=== PATIENT | male | born 1955 | race Caucasian/White ===

== ENCOUNTER 2024-01-22 11:47 | Emergency (ER) | payer MEDICARE, BC, SELFPAY ==
[2024-01-22 12:27] VITALS: BP 132/76; PULSE 60; RESP 20; TEMP 36.5; O2SAT 99; BMI 39.3
--- NOTE | 2024-01-22 12:31 | XR_ITS ---
Examination: AP chest single view Technique: AP portable sitting chest single view Exam date and time: January 22, 2024 1316 hrs. Comparison September 16, 2023 Indications: Shortness of breath today Findings: Mild heart failure Mild enlargement cardiac contour Prominent vascular congestion with perihilar edema No lobar pneumonia Prominent osteopenia Right arm PICC line tip SVC satisfactory position Impression: Mild CHF
--- NOTE | 2024-01-22 12:31 | EKG_ITS ---
[facility] Test Date: 2024-01-22 Pat Name: LYUBOV CARMONA Department: Room: - Gender: Male Support Services Rep: : 1955 Requested By: Diomedes Rockwell Order Number: [id number] Reading MD: Diomedes Rockwell Measurements Intervals [place] Rate: 64 P: DC: QRS: 11 QRSD: 93 T: 38 QT: 383 QTc: 398 Interpretive Statements SUPRAVENTRICULAR RHYTHM ATYPICAL ECG Compared to ECG 09/26/2023 13:14:35 Supraventricular rhythm now present Atrial fibrillation no longer present T-wave abnormality no longer present /store/S0/[id number]/ecg/[id number].pdf
--- NOTE | 2024-01-22 12:32 | PD.EDADULT ---
ED General RME/HPI General Chief complaint: Shortness of Breath/Dyspnea Stated complaint: SOB Time Seen by Provider: 01/22/24 12:31 Arrival date/time: 01/22/24 11:47 CC: Progressive worsening shortness of breath HPI ongoing for the past 4 to 5 days patient presents to the ER via EMS from [facility] where the physician states the patient is not responding to Lasix medication for diuresis. Patient is nonambulatory for the past 6 weeks secondary to spinal fusion, is bedridden with an indwelling Harrington catheter has been there greater than 1 month. Patient denies fever chills chest pain shortness of breath. Related Data Home Medications ?Medication ?Instructions ?Recorded ?Confirmed valsartan 160 mg tablet 80 mg PO QDAY 09/16/23 12/03/23 carvedilol 25 mg tablet 25 mg PO BID 11/08/23 12/03/23 B-complex with vitamin C 1 tab PO QDAY 12/03/23 12/03/23 acetaminophen 500 mg tablet 500 mg PO Q8H 12/03/23 12/03/23 bisacodyl 10 mg rectal suppository 10 mg CA QDAY PRN Constipation 12/03/23 12/03/23 (Dulcolax (bisacodyl)) capsaicin 0.025 % topical cream 1 applic topical TID 12/03/23 12/03/23 gabapentin 300 mg capsule 300 mg PO BID 12/03/23 12/03/23 heparin (bovine) 5,000 unit/mL 5,000 unit BID 12/03/23 12/03/23 injection solution lansoprazole 30 mg capsule,delayed 30 mg PO QDAY 12/03/23 12/03/23 release (Prevacid) lidocaine 4 % topical patch 1 patch topical QDAY PRN Pain 12/03/23 12/03/23 lidocaine 4 % topical patch 2 patch topical QDAY PRN Pain 12/03/23 12/03/23 melatonin 5 mg tablet 5 mg PO HS 12/03/23 12/03/23 naloxone 0.4 mg/mL injection 0.1 mg subcut Q1M PRN Opioid 12/03/23 12/03/23 solution reversal ondansetron HCl 4 mg/5 mL oral 4 mg PO Q6H PRN Nausea 12/03/23 12/03/23 solution oxycodone 10 mg tablet 10 mg PO Q3H PRN Pain 12/03/23 12/03/23 polyethylene glycol 3350 17 gram 17 g PO QDAY PRN Constipation 12/03/23 12/03/23 oral powder packet (Miralax) sennosides 8.6 mg tablet (senna) 17.2 mg PO QHSPRN PRN Constipation 12/03/23 12/03/23 vancomycin 1.25 gram intravenous 1,250 mg IV Q48H 12/03/23 12/03/23 solution Previous Rx's ?Medication ?Instructions ?Recorded blood-glucose sensor (FreeStyle #1 ea 04/29/23 Shelby 3 Sensor device) lancets #100 ea 04/29/23 pen needle, diabetic 29 gauge x #100 ea 04/29/2303/15 (BD Ultra-Fine Original Pen Needle) insulin regular human 100 unit/mL 5 unit (0.05 mL) subcut TIDACHS 09/29/23 (3 mL) subcutaneous pen PRN Hyperglycemia #15 mL furosemide 40 mg tablet (Lasix) 40 mg PO QDAY #4 tabs 01/22/24 Allergies Allergy/AdvReac Type Severity Reaction Status Date / Time No Known Allergies Allergy Verified 10/29/23 13:21 Review of Systems Review of Systems Narrative Review of Systems: GEN: No fever, no chills, no weight loss EYES: No discharge, no visual changes, no pain HEENT: No ear pain, no congestion, no sore throat PULM:+ shortness of breath, no cough, no congestion CV: No chest pain, no dyspnea on exertion, no palpitations GI: No nausea, no vomiting, no diarrhea, no pain, no constipation : No frequency, no urgency, no dysuria MUSC/SKEL: No joint pain, no back pain SKIN: No rash PSYCH: No hallucinations, no depression HEME/LYMPH: No easy bleeding or bruising tendencies NEURO: No weakness, no headache ED Exam Narrative Physical exam: [General: Morbidly obese not in any acute distress Head normocephalic HEENT: Eyes pupils are PERRLA EOMs are intact mouth pink moist membranes uvula midline. All other subsystems of HEENT are within acceptable limits Neck is supple nontender, no edema no JVD Chest equal chest rise nontender to palpation Respiratory: Poor inspiratory effort secondary to obesity. Clear to auscultation no wheezes crackles or rubs CV: Rate rhythm is regular no murmurs rubs or clicks Abdomen is distended secondary to body habitus soft nontender no masses positive bowel sounds all 4 quadrants Back: Unable to assess initially is secondary to the patient's immobility secondary to spinal fusion. Skin: Intact no petechiae rash induration ulceration or crepitus, chronic s venous stasis type skin with no open lesions to the lower extremities 2+ pitting edema to the knees. Extremities: Moving all extremity against resistance cap refill less than 2 seconds neurosensory intact Neuro: Awake alert oriented x3 Glascow coma 15 no focal deficits] Course Course Course Narrative: Reevaluation this patient at 1700 so the patient has diuresed approximately 600 mL of urine with 80 of Lasix at this time I feel the patient can be diuresed on an outpatient basis and we will add Lasix to the patient's regular regimen for the next 4 days. Patient is agreeable with this plan stating that stating that he feels better. Quality Measures none Orders Category Date Time Status Bedside COVID-19 Antigen Test NOW Care 01/22/24 16:45 Active EKG (ED ONLY) *Do not use* NOW Care 01/22/24 12:31 Completed Harrington [Urinary Catheter] QS Care 01/22/24 14:00 Active Miscellaneous Nursing Order NOW Care 01/22/24 13:46 Active EKG (ED Only) Stat Exams 01/22/24 12:31 Draft XR chest 1V Stat Exams 01/22/24 12:31 Completed B-Type Natriuretic Peptide Stat Lab 01/22/24 12:40 Completed CBC Stat Lab 01/22/24 12:40 Completed Comprehensive Metabolic Panel Stat Lab 01/22/24 12:40 Completed Drug Screen,Urine Stat Lab 01/22/24 14:50 Completed LDH (Lactate Dehydrogenase) Stat Lab 01/22/24 12:40 Completed Magnesium Stat Lab 01/22/24 12:40 Completed Partial Thromboplastin Time Stat Lab 01/22/24 12:40 Completed Prothrombin Time with INR Stat Lab 01/22/24 12:40 Completed Troponin I Stat Lab 01/22/24 12:40 Completed Urinalysis Stat Lab 01/22/24 14:50 Completed Furosemide Inj [Lasix Inj] Med 01/22/24 14:53 Discontinued 80 mg IVP X1 ONE Vital Signs Vital signs: Vital Signs Temperature 97.7 F 01/22/24 12:27 Pulse Rate 60 01/22/24 12:27 Respiratory Rate 20 01/22/24 12:27 Blood Pressure 132/76 H 01/22/24 12:27 Pulse Oximetry (%) 99 01/22/24 12:27 Oxygen Delivery Method Nasal Cannula 01/22/24 12:27 Oxygen Flow Rate 6 01/22/24 12:27 [facility] Patient data External records reviewed:: [facility] previous records and EMS form Clinical information provided by:: patient and EMS Social determinants that could affect healthcare access:: none Patient has the following chronic illnesses:: Spinal fusion diabetes hypertension How is presenting disease/condition affected by chronic disease/condition?: uneffected by Evaluation data The following diagnostics were reviewed and interpreted by me:: lab results, radiology exam(s) and EKG tracing(s) Lab and/or radiology exams considered but not ordered:: EKG performed at 1316 shows a ventricular rate of 64 QRS of 93 QTc of 393 there is baseline artifact indeterminant CA interval. CBC shows WBCs of 5.4 and her significant anemia at 7.5 and 26.0 of the H&H respectively, however prior draws show the patient is remained chronically this anemic. Platelets at 138 CMP shows sodium 141 potassium of 5.2 chloride of 111 CO2 24.9 BUN of 48 creatinine of 2.2 with a glucose of 139. This is a worsening of the previous laboratory results. Troponin is negative BNP is 237. Coags INR 1.2. Chest x-ray is interpreted by me read by radiology shows mild CHF. Urine send shows leukocyte Estrace positive, white blood cell count of greater than 3100, but no bacteria. Interpretation Summary: Review of the medical records 1 shows that the patient has a slowly worsening CKD the patient was previously a ESRD patient and taken off dialysis at [facility] [[email or web address]] diagnosed with a CKD stage III history. Review of the medical record show the last urine culture and sensitivity shows methyl resistant Staph aureus with susceptibility to nitrofurantoin. Medications Medications considered but not ordered:: None Medication administrations:: Medication Administration History Discontinued Medications Furosemide (Furosemide Inj 10 Mg/Ml 4ml Vial) 80 mg IVP X1 ONE Stop: 01/22/24 14:54 Last Admin: 01/22/24 15:16 Dose: 80 mg Documented By: DO None Consultations Consultation(s) initiated? (list below): No Diagnosis Differential Diagnosis ED Complaint MDM: Flash pulmonary edema have congestive heart failure lower extremity edema C Most likely diagnosis given after review of the tests above:: Lower extremity edema CKD Admission Indicated Admission indicated?: not indicated Explain why admission is indicated or not indicated:: Stable for outpatient follow-up Admission Request Was there a request for admission?: No Disposition Plan Disposition Plan: Discharge Discharge Attestation Discharge Attestation: The patient and all family members were given an opportunity to ask questions and understood the discharge instructions. Discharge instructions specifically effects, indications for sooner follow up or return to the emergency department, and the expected course of current diagnosis. Patient condition: Stable Medical Decision Making Differential Diagnosis Differential Diagnosis: Flash pulmonary edema have congestive heart failure lower extremity edema C Lab Data 01/22/24 12:40 01/22/24 12:40 Labs: Lab Results 01/22/24 01/22/24 Range/Units 12:40 14:50 WBC 5.4 (3.8-10.6) Thou/mm3 RBC 2.88 L (4.50-5.90) Miln/mm3 Hgb 7.5 L (13.5-16.0) g/dL Hct 26.0 L (41.0-53.0) % MCV 90 (80-100) fL MCH 26.0 (25.0-35.0) pg MCHC 28.8 L (31.0-37.0) g/dl RDW Std Deviation 60.1 H (35.1-43.9) fL Plt Count 138 L D (140-440) Thou/mm3 Neut % (Auto) 56 (37-80) % Lymph % (Auto) 27 (10-50) % [place] % (Auto) 8 (0-12) % Eos % (Auto) 7 (0-10) % Baso % (Auto) 0 (0-2.5) % Neut # (Auto) 3.0 (1.8-7.7) Thou/mm3 Lymph # (Auto) 1.5 (1.0-4.8) Thou/mm3 [place] # (Auto) 0.4 (0.0-0.8) Thou/mm3 Eos # (Auto) 0.4 (0.0-0.5) Thou/mm3 Baso # (Auto) 0.0 (0.0-0.2) Thou/mm3 Immature Gran # (Auto) 0.09 H (0.00-0.00) Thou/mm3 Absolute Nucleated RBC 0.02 H (0.00-0.00) Thou/mm3 Immature Gran % 2 H (0-0) % Nucleated RBC % 0 (0) /100 WBC PT 13.1 H (9.0-12.2) Seconds INR 1.2 (0.9-1.3) APTT 30.8 (22.0-36.0) Seconds Sodium 141 (136-145) mMol/L Potassium 5.2 H (3.4-5.1) mMol/L Chloride 111 H (98-107) mMol/L Carbon Dioxide 24.9 (20.0-31.0) mMol/L Anion Gap 5 L (7-16) BUN 48 H (9-23) mg/dL Creatinine 2.2 H (0.6-1.3) mg/dL Estim Creat Clear Calc 46.3 L (>60) mL/min eGFR 32 L (60 - ) See Note BUN/Creatinine Ratio 22 H (12-20) Ratio Glucose 139 H (74-106) mg/dL Calculated Osmolality 295 (275-295) Calcium 8.8 (8.3-10.6) mg/dL Corrected Calcium 9.4 (8.5-10.1) mg/dL Magnesium 2.1 (1.6-2.6) mg/dL Total Bilirubin 0.2 L (0.3-1.2) mg/dL AST < 8 (0-34) U/L ALT < 7 L (10-49) U/L Alkaline Phosphatase 125 H (46-116) U/L Lactate Dehydrogenase 147 (120-246) U/L Troponin I < 0.020 (0.0-0.045) ng/mL B-Natriuretic Peptide 237 H (0-100) pg/mL Total Protein 6.9 (5.7-8.2) gm/dL Albumin 3.3 L (3.4-4.8) gm/dL Globulin 3.6 H (2.3-3.5) gm/dL Albumin/Globulin Ratio 0.9 L (1.2-2.2) Ur Collection Type Clean Catch Urine Color Yellow (Lt Yel-Yel) Urine Clarity Turbid A (Clear/Hazy) Urine pH 6.5 (5.0-7.0) Ur Specific [place] 1.016 (1.001-1.035) Urine Protein 3+ A (Neg - Trace) Urine Glucose (UA) Trace (Negative) Urine Ketones Negative (Negative) Urine Blood 3+ A (Negative) Urine Nitrite Negative (Negative) Urine Bilirubin Negative (Negative) Urine Urobilinogen (Auto) Negative (0.0-1.0) mg/dL Ur Leukocyte Esterase Positive (Negative) Urine RBC 344 H (0-3) /hpf Urine WBC 2168 H (0-5) /hpf Ur Squamous Epith Cells 0 (0-5) /hpf Urine Bacteria None (None) Urine Opiates Screen Negative (Negative) Urine Fentanyl Screen Negative (Negative) Ur Barbiturates Screen Negative (Negative) U Amphetamin/Meth Scrn Negative (Negative) U Benzodiazepines Scrn Negative (Negative) U Cocaine Metab Screen Negative (Negative) U Marijuana (THC) Screen Negative (Negative) Discharge Plan Plan Patient Disposition: HOME (Self Care) Patient condition on transfer: Stable Prescriptions/Referrals Prescriptions/Med Rec: New furosemide [Lasix] 40 mg tablet 40 mg PO QDAY Qty: 4 0RF No Action valsartan 160 mg tablet 80 mg PO QDAY insulin regular human 100 unit/mL (3 mL) insulin pen 5 unit subcut TIDACHS PRN (Reason: Hyperglycemia) Qty: 15 0RF Rx Instructions: patient only takes if sugar is on the high side, not on regular basis carvedilol 25 mg tablet 25 mg PO BID Rx Instructions: must administer with a meal/food (DME) pen needle, diabetic [BD Ultra-Fine Orig Pen Needle] 29 gauge x 1/2 needle See Rx Instructions .Route Qty: 100 0RF Rx Instructions: As directed (DME) lancets Misc See Rx Instructions .Route Qty: 100 0RF Rx Instructions: As directed (DME) FreeStyle Shelby 3 Sensor Device See Rx Instructions .Route Qty: 1 0RF Rx Instructions: As directed sennosides [senna] 8.6 mg Tablet 17.2 mg PO QHSPRN PRN (Reason: Constipation) lidocaine 4 % Adhesive Patch,Medicated 1 patch TOPICAL QDAY PRN (Reason: Pain) lidocaine 4 % Adhesive Patch,Medicated 2 patch TOPICAL QDAY PRN (Reason: Pain) polyethylene glycol 3350 [Miralax] 17 gram Powder In Packet 17 g PO QDAY PRN (Reason: Constipation) naloxone 0.4 mg/mL Solution 0.1 mg SUBCUT Q1M PRN (Reason: Opioid reversal ) Rx Instructions: NTExceed 10 mg total dose/episode heparin (bovine) 5,000 unit/mL Solution 5,000 unit BID acetaminophen 500 mg Tablet 500 mg PO Q8H ondansetron HCl 4 mg/5 mL Solution 4 mg PO Q6H PRN (Reason: Nausea) bisacodyl [Dulcolax (bisacodyl)] 10 mg Suppository 10 mg CA QDAY PRN (Reason: Constipation) lansoprazole [Prevacid] 30 mg Capsule,Delayed Release(Dr/Ec) 30 mg PO QDAY gabapentin 300 mg Capsule 300 mg PO BID capsaicin 0.025 % Cream 1 applic TOPICAL TID B-complex with vitamin C Tablet 1 tab PO QDAY oxycodone 10 mg Tablet 10 mg PO Q3H PRN (Reason: Pain) melatonin 5 mg Tablet 5 mg PO HS vancomycin 1.25 gram Recon Soln 1,250 mg IV Q48H Referrals: Aamnda Dinh MD [Primary Care Provider] - In 1 week Problem List Clinical Impression: Dependent edema, CKD (chronic kidney disease), stage III Patient/Caregiver Discharge Instructions Education Materials: Taking a Diuretic, ED Leg Swelling in Both Legs Additional Instructions: Take the medications as prescribed for 4 days only have your doctor closely monitor your renal function. If there is a worsening of symptoms or continued reaccumulation of the fluid in the lower extremities or experiencing acute onset of shortness of breath return the emergency room immediately for further evaluation. Print Language: Dutch Stand Alone Forms: Leanne Award Info., Patient Portal Info Letter PA/PORTFOLIO ASSISTANT Supervising Physician PA/PORTFOLIO ASSISTANT Supervising Physician: Nehemias Rosado ENP
[2024-01-22 12:48] VITALS: PULSE 81; RESP 18; O2SAT 88
[2024-01-22 13:04] LABS: Basophils % (Auto) 0 % (0-2.5); Eosinophils # (Auto) 0.4 Thou/mm3 (0.0-0.5); Eosinophils % (Auto) 7 % (0-10); Immature Granulocytes % (Auto) 2 % (0-0); Immature Granulocytes Auto 0.09 Thou/mm3 (0.00-0.00); Lymphocytes # (Auto) 1.5 Thou/mm3 (1.0-4.8); Lymphocytes % (Auto) 27 % (10-50); Mean Corpuscular HGB Conc 28.8 g/dl (31.0-37.0); Mean Corpuscular Volume 90 fL (80-100); Monocytes # (Auto) 0.4 Thou/mm3 (0.0-0.8); Monocytes % (Auto) 8 % (0-12); Neutrophils % (Auto) 56 % (37-80); Nucleated Red Blood Cell # 0.02 Thou/mm3 (0.00-0.00); Nucleated Red Blood Cell % 0 /100 WBC (0); Platelet Count 138 Thou/mm3 (140-440); RDW Standard Deviation 60.1 fL (35.1-43.9); Red Blood Count 2.88 Miln/mm3 (4.50-5.90); White Blood Count 5.4 Thou/mm3 (3.8-10.6)
[2024-01-22 13:07] LABS: Hemoglobin 7.5 g/dL (13.5-16.0)
[2024-01-22 13:31] LABS: B-Type Natriuretic Peptide 237 pg/mL (0-100); INR 1.2 (0.9-1.3); Partial Thromboplastin Time 30.8 Seconds (22.0-36.0); Prothrombin Time 13.1 Seconds (9.0-12.2)
[2024-01-22 13:58] LABS: Alanine Aminotransferase < 7 U/L (10-49); Albumin, Serum 3.3 gm/dL (3.4-4.8); Albumin/Globulin Ratio 0.9 (1.2-2.2); Alkaline Phosphatase 125 U/L (46-116); Anion Gap 5 (7-16); Aspartate Amino Transferase < 8 U/L (0-34); BUN/Creatinine Ratio 22 Ratio (12-20); Bilirubin,Total 0.2 mg/dL (0.3-1.2); Blood Urea Nitrogen 48 mg/dL (9-23); Calcium 8.8 mg/dL (8.3-10.6); Calcium (Corrected) 9.4 mg/dL (8.5-10.1); Carbon Dioxide 24.9 mMol/L (20.0-31.0); Chloride 111 mMol/L (98-107); Creatinine (Component) 2.2 mg/dL (0.6-1.3); Estimated Creatinine Clearance 46.3 mL/min (>60); Globulin 3.6 gm/dL (2.3-3.5); Glucose 139 mg/dL (74-106); LDH (Lactate Dehydrogenase) 147 U/L (120-246); Magnesium 2.1 mg/dL (1.6-2.6); Osmolality,Calculated 295 (275-295); Potassium 5.2 mMol/L (3.4-5.1); Sodium 141 mMol/L (136-145); Total Protein 6.9 gm/dL (5.7-8.2); Troponin I < 0.020 ng/mL (0.0-0.045); eGFR 32 See Note
[2024-01-22 15:10] LABS: Collection Type, Urine Clean Catch; Squamous Epithelial Cell,Urine 0 /hpf (0-5)
[2024-01-22 15:16] VITALS: BP 167/87; PULSE 69; RESP 20; O2SAT 96
[2024-01-22] MEDS: FUROSEMIDE INJ 10 MG/ML 4ML VIAL 80 MG IVP (15:16)
[2024-01-22 15:46] LABS: Amphetamine/Methamp Scrn,U Negative (Negative); Barbiturate Screen,Urine Negative (Negative); Benzodiazepines Screen,Urine Negative (Negative); Benzoylecgonine Screen, Ur Negative (Negative); Fentanyl Screen,Urine Negative (Negative); Opiate Screen,Urine Negative (Negative); THC Screen,Urine Negative (Negative)
--- NOTE | 2024-01-22 15:50 | PC.NURSE ---
250ml urine output noted at this time. reported to rosamaria del castillo
[2024-01-22 15:53] LABS: Bilirubin,Urine Negative (Negative); Blood,Urine 3+ (Negative); Color,Urine Yellow (Lt Yel-Yel); Glucose, Urine Trace (Negative); Ketones,Urine Negative (Negative); Leukocyte Esterase,Urine Positive (Negative); Nitrite,Urine Negative (Negative); PH,Urine 6.5 (5.0-7.0); Protein,Urine 3+ (Neg - Trace); RBC,Urine 344 /hpf (0-3); Specific Gravity,Urine 1.016 (1.001-1.035); Urobilinogen,Urine Negative mg/dL (0.0-1.0); WBC,Urine 2168 /hpf (0-5)
[2024-01-22 15:54] LABS: Clarity,Urine Turbid (Clear/Hazy)
[2024-01-22 18:00] VITALS: BP 175/78; PULSE 68; RESP 20; TEMP 36.9; O2SAT 97
--- NOTE | 2024-01-22 18:34 | PC.CC ---
[facility] [facility] CC engaged to arrange transport for pt back to [facility]. Upon review pt does not have health coverage to cover transport. Pt will require gurney transport for being bound due to spinal fusion. 1800-[facility] CC contacted [facility] for gurney transport. Per staff gurney transport not available. DENNIS signed for gurney transport. PCS, face sheet and DENNIS uploaded to [employer]. 183-Call to dispatch. Transport ETA set for 1944. Staff aware.
--- NOTE | 2024-01-22 18:43 | PC.NURSE ---
REPORT GIVEN TO MIGUELANGEL AT [facility]
== END 2024-01-22 19:10 | disposition home or self-care (01) ==
PROVIDERS: Registered Nurse General Practice; Emergency Provider Emergency Medicine; PCP Family Medicine
DX: I12.9 Hypertensive chronic kidney disease with stage 1 through stage 4 chronic kidney disease, or unspecified chronic kidney disease (principal); E11.22 Type 2 diabetes mellitus with diabetic chronic kidney disease; N18.30 Chronic kidney disease, stage 3 unspecified; I49.8 Other specified cardiac arrhythmias
CPT/HCPCS: 51702; 36415; 71045; 80053; 80307; 81001; 83615; 83735; 83880; 84484; 85025; 85610; 85730; 87811; 93005; 96374; 99284; J1940

== ENCOUNTER 2024-03-29 16:42 | Emergency (ER) | payer MEDICARE, BC, SELFPAY ==
[2024-03-29 16:48] VITALS: PULSE 69; RESP 18; O2SAT 97; BMI 36.2
[2024-03-29 16:53] VITALS: BP 163/103; PULSE 74; RESP 18; TEMP 37.1; O2SAT 98
--- NOTE | 2024-03-29 16:56 | PC.NURSE ---
PT ARRIVES VIA EMS FROM HOME, HAS INDWELLING CATHETER THAT WAS LEAKING URINE AROUND CATHETER AND HAVING SEVERE PAIN IN BLADDER REGION. PT CALLED HOME HEALTH NURSE WHO CAME PULLED OLD CATHETER AND ATTEMPTED TO PLACE A NEW ONE BUT WAS UNSUCCESSFUL IT WAS CAUSING THE PT TOO MUCH PAIN. PT DOES NOT HAVE BUSH IN UPON ARRIVAL TO ED. PT IS HYPERTENSIVE ON TELE, CALL [facility] [place].
--- NOTE | 2024-03-29 17:05 | EDNOTE_ITS ---
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 Patient was sent to us for further evaluation. Now patient is complaining of suprapubic distention and discomfort. Denies any other complaints. Related Data Home Medications ?Medication ?Instructions ?Recorded ?Confirmed valsartan 160 mg tablet 80 mg PO QDAY 09/16/23 12/03/23 carvedilol 25 mg tablet 25 mg PO BID 11/08/23 12/03/23 B-complex with vitamin C 1 tab PO QDAY 12/03/23 12/03/23 acetaminophen 500 mg tablet 500 mg PO Q8H 12/03/23 12/03/23 bisacodyl 10 mg rectal suppository [address] QDAY PRN Constipation 12/03/23 12/03/23 (Dulcolax (bisacodyl)) capsaicin 0.025 % topical cream 1 applic topical TID 12/03/23 12/03/23 gabapentin 300 mg capsule 300 mg PO BID 12/03/23 12/03/23 heparin (bovine) 5,000 unit/mL 5,000 unit BID 12/03/23 12/03/23 injection solution lansoprazole 30 mg capsule,delayed 30 mg PO QDAY 12/03/23 12/03/23 release (Prevacid) lidocaine 4 % topical patch 1 patch topical QDAY PRN Pain 12/03/23 12/03/23 lidocaine 4 % topical patch 2 patch topical QDAY PRN Pain 12/03/23 12/03/23 melatonin 5 mg tablet 5 mg PO HS 12/03/23 12/03/23 naloxone 0.4 mg/mL injection 0.1 mg subcut Q1M PRN Opioid 12/03/23 12/03/23 solution reversal ondansetron HCl 4 mg/5 mL oral 4 mg PO Q6H PRN Nausea 12/03/23 12/03/23 solution oxycodone 10 mg tablet 10 mg PO Q3H PRN Pain 12/03/23 12/03/23 polyethylene glycol 3350 17 gram 17 g PO QDAY PRN Constipation 12/03/23 12/03/23 oral powder packet (Miralax) sennosides 8.6 mg tablet (senna) 17.2 mg PO QHSPRN PRN Constipation 12/03/23 12/03/23 vancomycin 1.25 gram intravenous 1,250 mg IV Q48H 12/03/23 12/03/23 solution Previous Rx's ?Medication ?Instructions ?Recorded blood-glucose sensor (FreeStyle #1 ea 04/29/23 Shelby 3 Sensor device) lancets #100 ea 04/29/23 pen needle, diabetic 29 gauge x #100 ea 04/29/2303/15 (BD Ultra-Fine Original Pen Needle) insulin regular human 100 unit/mL 5 unit (0.05 mL) subcut TIDACHS 09/29/23 (3 mL) subcutaneous pen PRN Hyperglycemia #15 mL furosemide 40 mg tablet (Lasix) 40 mg PO QAM #4 tabs 01/22/24 furosemide 40 mg tablet (Lasix) 40 mg PO QDAY #4 tabs 01/22/24 cefuroxime axetil 500 mg tablet 500 mg PO BID #14 tabs 03/29/24 Allergies Allergy/AdvReac Type Severity Reaction Status Date / Time gabapentin Allergy Confusion Verified 03/29/24 16:54 Review of Systems Review of Systems Narrative Review of Systems: Review of system reviewed and within normal limits except mentioned in HPI ED Exam Narrative Physical exam: VITAL SIGNS: Reviewed. GENERAL APPEARANCE: Alert and interactive, follows commands, no acute distress, HEAD AND FACE: Non-traumatic. ENT: PERRL, pink conjunctivitis, eyelid no trauma, Mucous membrane moist. NECK: Supple, nontender, no nuchal rigidity. CHEST: No tenderness, no crepitus, no paradoxical movement, no retractions. LUNGS: Clear, well ventilated, symmetric, no rales, no wheezing, no ronchi, no stridor, good breath sounds bilaterally. HEART: Regular rate, regular rhythm, no murmur, no gallops. ABDOMEN: Soft, positive bowel sounds, nondistended, no guarding, suprapubic distention and discomfort, no rebound, no masses, RECTAL: Deferred. GENITAL: Deferred. NEUROLOGICAL: Gross motor function intact sensory function intact, Appropriate for age. MUSCULOSKELETAL: low back nontender, full range of motion. EXTREMITIES: Nontender, full range of motion. SKIN: Color pink, dry, no rash, no lacerations, no abrasions, no contusions. LYMPHATICS: Deferred. Course Quality Measures none Orders Category Date Time Status Bush [Urinary Catheter] QS Care 03/29/24 17:03 Active CBC [CBC] Stat Lab 03/29/24 17:12 Completed CMP [Comprehensive Metabolic Panel] Stat Lab 03/29/24 17:12 Completed UA, C/S IF [Urinalysis, C/S if Indicated] Stat Lab 03/29/24 17:23 Completed Urine Culture Stat Lab 03/29/24 17:23 Received cefTRIAXone [Rocephin] 1,000 mg Med 03/29/24 18:08 Discontinued Lidocaine 1% 20 ml [Xylocaine 1% 20 ML] 2.1 ml IM X1 Vital Signs Vital signs: Vital Signs Temperature 98.7 F 03/29/24 16:53 Pulse Rate 74 03/29/24 16:53 Respiratory Rate 18 03/29/24 16:53 Blood Pressure 163/103 H 03/29/24 16:53 Pulse Oximetry (%) 98 03/29/24 16:53 Oxygen Delivery Method Room Air 03/29/24 16:53 Urogenital - Male MDM Narrative MDM Narrative:: 68-year-old male patient with significant history of BPH, chronic Bush catheter, 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 Patient was sent to us for further evaluation. Now patient is complaining of suprapubic distention and discomfort. Denies any other complaints. Brenda 18 Bush catheter was inserted without any difficulty. Urinalysis significant for UTI. Patient's laboratory workup significant for chronic kidney disease. Currently the creatinine was on the baseline. Results discussed with the patient. Was advised to drink a lot of fluids and follow-up closely with PCP. Patient received ceftriaxone IM Patient data External records reviewed:: None Clinical information provided by:: patient Social determinants that could affect healthcare access:: none Patient has the following chronic illnesses:: Diabetes mellitus hypertension chronic Bush catheter How is presenting disease/condition affected by chronic disease/condition?: exacerbated by Evaluation data The following diagnostics were reviewed and interpreted by me:: lab results Lab and/or radiology exams considered but not ordered:: None Interpretation Summary: Urinalysis significant for UTI otherwise unremarkable except for chronic kidney disease patient's creatinine today was noted to be 2.1 BUN of 35. Medications / Prescriptions Medications or Prescriptions considered but not ordered:: None Medication administrations:: Medication Administration History Discontinued Medications Ceftriaxone Sodium 1,000 mg/ (Lidocaine HCl 2.1 ml) 0 mg IM X1 ONE Stop: 03/29/24 18:09 Last Admin: 03/29/24 18:23 Dose: 1,000 mg Documented By: TM Ceftriaxone IM Consultations Consultation(s) initiated? (list below): No Diagnosis Urogenital Male Differential Diagnosis: urinary tract infection, acute retention of urine and other (Chronic Bush catheter) Most likely diagnosis given after review of the tests above:: Acute on chronic urinary retention, UTI Admission Indicated Admission indicated?: not indicated Explain why admission is indicated or not indicated:: Stable Admission Request Was there a request for admission?: No Disposition Plan Disposition Plan: Discharge Discharge Attestation Discharge Attestation: The patient and all family members were given an opportunity to ask questions and understood the discharge instructions. Discharge instructions specifically effects, indications for sooner follow up or return to the emergency department, and the expected course of current diagnosis. Patient condition: Stable Discharge Plan Plan Patient Disposition: HOME (Self Care) Disposition Comment: Stable Prescriptions/Referrals Prescriptions/Med Rec: New cefuroxime axetil 500 mg tablet 500 mg PO BID Qty: 14 0RF No Action valsartan 160 mg tablet 80 mg PO QDAY insulin regular human 100 unit/mL (3 mL) insulin pen 5 unit subcut TIDACHS PRN (Reason: Hyperglycemia) Qty: 15 0RF Rx Instructions: patient only takes if sugar is on the high side, not on regular basis carvedilol 25 mg tablet 25 mg PO BID Rx Instructions: must administer with a meal/food (DME) pen needle, diabetic [BD Ultra-Fine Orig Pen Needle] 29 gauge x 1/2 needle See Rx Instructions .Route Qty: 100 0RF Rx Instructions: As directed (DME) lancets Misc See Rx Instructions .Route Qty: 100 0RF Rx Instructions: As directed (DME) FreeStyle Shelby 3 Sensor Device See Rx Instructions .Route Qty: 1 0RF Rx Instructions: As directed sennosides [senna] 8.6 mg Tablet 17.2 mg PO QHSPRN PRN (Reason: Constipation) lidocaine 4 % Adhesive Patch,Medicated 1 patch TOPICAL QDAY PRN (Reason: Pain) lidocaine 4 % Adhesive Patch,Medicated 2 patch TOPICAL QDAY PRN (Reason: Pain) polyethylene glycol 3350 [Miralax] 17 gram Powder In Packet 17 g PO QDAY PRN (Reason: Constipation) naloxone 0.4 mg/mL Solution 0.1 mg SUBCUT Q1M PRN (Reason: Opioid reversal ) Rx Instructions: NTExceed 10 mg total dose/episode heparin (bovine) 5,000 unit/mL Solution 5,000 unit BID acetaminophen 500 mg Tablet 500 mg PO Q8H ondansetron HCl 4 mg/5 mL Solution 4 mg PO Q6H PRN (Reason: Nausea) bisacodyl [Dulcolax (bisacodyl)] 10 mg Suppository [address] QDAY PRN (Reason: Constipation) lansoprazole [Prevacid] 30 mg Capsule,Delayed Release(Dr/Ec) 30 mg PO QDAY gabapentin 300 mg Capsule 300 mg PO BID capsaicin 0.025 % Cream 1 applic TOPICAL TID B-complex with vitamin C Tablet 1 tab PO QDAY oxycodone 10 mg Tablet 10 mg PO Q3H PRN (Reason: Pain) melatonin 5 mg Tablet 5 mg PO HS vancomycin 1.25 gram Recon Soln 1,250 mg IV Q48H furosemide [Lasix] 40 mg tablet 40 mg PO QDAY Qty: 4 0RF furosemide [Lasix] 40 mg tablet 40 mg PO QAM Qty: 4 0RF Referrals: Amanda Dinh MD [Primary Care Provider] - In 1 week Problem List Clinical Impression: UTI (urinary tract infection), Acute on chronic urinary retention Patient/Caregiver Discharge Instructions Discharge Activity: activity as tolerated Education Materials: ED Bush Catheter, Care Additional Instructions: Thank you for the opportunity for serving you today. You are stable for discharged . You are advised to: Follow-up with your PCP in 1 to 2 days Return to ED for worsening of symptoms Increase oral fluids Take medication as prescribed Print Language: Bengali Stand Alone Forms: Leanne Award Info., Patient Portal Info Letter PA/LATHA Supervising Physician LILIAN/LATHA Supervising Physician: MD Clara
[2024-03-29 17:18] LABS: Basophils % (Auto) 0 % (0-2.5); Eosinophils # (Auto) 0.6 Thou/mm3 (0.0-0.5); Eosinophils % (Auto) 6 % (0-10); Hematocrit 30.4 % (41.0-53.0); Hemoglobin 9.7 g/dL (13.5-16.0); Immature Granulocytes % (Auto) 0 % (0-0); Immature Granulocytes Auto 0.04 Thou/mm3 (0.00-0.00); Lymphocytes # (Auto) 1.7 Thou/mm3 (1.0-4.8); Lymphocytes % (Auto) 19 % (10-50); Mean Corpuscular HGB Conc 31.9 g/dl (31.0-37.0); Mean Corpuscular Hemoglobin 25.5 pg (25.0-35.0); Mean Corpuscular Volume 80 fL (80-100); Monocytes # (Auto) 0.7 Thou/mm3 (0.0-0.8); Monocytes % (Auto) 8 % (0-12); Neutrophils % (Auto) 67 % (37-80); Nucleated Red Blood Cell % 0 /100 WBC (0); Platelet Count 153 Thou/mm3 (140-440); RDW Standard Deviation 46.5 fL (35.1-43.9); Red Blood Count 3.81 Miln/mm3 (4.50-5.90)
[2024-03-29 17:39] LABS: Collection Type, Urine Catheter; Squamous Epithelial Cell,Urine 0 /hpf (0-5)
[2024-03-29 17:42] LABS: Alanine Aminotransferase 11 U/L (10-49); Albumin, Serum 3.4 gm/dL (3.4-4.8); Alkaline Phosphatase 124 U/L (46-116); Anion Gap 5 (7-16); Aspartate Amino Transferase 12 U/L (0-34); BUN/Creatinine Ratio 17 Ratio (12-20); Bilirubin,Total 0.2 mg/dL (0.3-1.2); Blood Urea Nitrogen 35 mg/dL (9-23); Calcium 8.8 mg/dL (8.3-10.6); Calcium (Corrected) 9.3 mg/dL (8.5-10.1); Carbon Dioxide 27.1 mMol/L (20.0-31.0); Chloride 110 mMol/L (98-107); Creatinine (Component) 2.1 mg/dL (0.6-1.3); Estimated Creatinine Clearance 46.5 mL/min (>60); Globulin 3.3 gm/dL (2.3-3.5); Glucose 207 mg/dL (74-106); Osmolality,Calculated 297 (275-295); Sodium 142 mMol/L (136-145); Total Protein 6.7 gm/dL (5.7-8.2); eGFR 34 See Note
[2024-03-29 17:46] LABS: Bacteria,Urine Rare; Bilirubin,Urine Negative (Negative); Blood,Urine 3+ (Negative); Color,Urine Yellow (Lt Yel-Yel); Glucose, Urine 2+ (Negative); Ketones,Urine Negative (Negative); Leukocyte Esterase,Urine Positive (Negative); Nitrite,Urine Negative (Negative); PH,Urine 6.5 (5.0-7.0); Protein,Urine 3+ (Neg - Trace); RBC,Urine 334 /hpf (0-3); Specific Gravity,Urine 1.014 (1.001-1.035); Urobilinogen,Urine Negative mg/dL (0.0-1.0); WBC,Urine 2149 /hpf (0-5)
[2024-03-29 17:49] LABS: Clarity,Urine Cloudy (Clear/Hazy); Culture Indicated,Urine Yes
[2024-03-29 18:12] VITALS: BP 165/85; PULSE 67; RESP 19; TEMP 36.8; O2SAT 95
[2024-03-29] MEDS: cefTRIAXone 1,000 MG, LIDOCAINE 1% 20 ML 2.1 ML IM (18:23)
[2024-03-29 20:51] VITALS: PULSE 63; RESP 20; O2SAT 95
--- NOTE | 2024-03-29 20:52 | PC.NURSE ---
Report given to EMS for discharge home.
== END 2024-03-29 20:53 | disposition home or self-care (01) ==
PROVIDERS: Nurse Practitioner Family; Emergency Provider Emergency Medicine; PCP Family Medicine
DX: N40.1 Benign prostatic hyperplasia with lower urinary tract symptoms (principal); R33.8 Other retention of urine; N39.0 Urinary tract infection, site not specified
CPT/HCPCS: 51702; 36415; 80053; 81001; 85025; 87086; 96372; 99283; J0696; J3490

== ENCOUNTER → 2024-04-24 | Outpatient (CLI) | payer MEDICARE, BC, SELFPAY ==
[2024-04-24 14:11] LABS: Collection Type, Urine Clean Catch; Squamous Epithelial Cell,Urine 0 /hpf (0-5)
[2024-04-24 14:45] LABS: Bilirubin,Urine Negative (Negative); Blood,Urine 2+ (Negative); Budding Yeast,Urine Present; Clarity,Urine Turbid (Clear/Hazy); Color,Urine Yellow (Lt Yel-Yel); Glucose, Urine Trace (Negative); Ketones,Urine Negative (Negative); Leukocyte Esterase,Urine Positive (Negative); Nitrite,Urine Negative (Negative); PH,Urine 6.5 (5.0-7.0); Protein,Urine 2+ (Neg - Trace); RBC,Urine 160 /hpf (0-3); Specific Gravity,Urine 1.011 (1.001-1.035); Urobilinogen,Urine Negative mg/dL (0.0-1.0); WBC,Urine 391 /hpf (0-5)
[2024-04-24 15:22] LABS: Culture Indicated,Urine Yes
== END | disposition home or self-care (01) ==
PROVIDERS: PCP Family Medicine; Referring Provider Family Medicine; Visit Provider Family Medicine
DX: N39.0 Urinary tract infection, site not specified (principal)
CPT/HCPCS: 81001; 87086; 87106

== ENCOUNTER → 2024-05-18 | Outpatient (CLI) | payer MEDICARE, BC, SELFPAY ==
[2024-05-18 13:56] LABS: Collection Type, Urine Clean Catch; Squamous Epithelial Cell,Urine 0 /hpf (0-5)
[2024-05-18 14:37] LABS: Bacteria,Urine Rare; Bilirubin,Urine Negative (Negative); Blood,Urine 1+ (Negative); Budding Yeast,Urine Present; Clarity,Urine Turbid (Clear/Hazy); Color,Urine Lt-Yellow (Lt Yel-Yel); Glucose, Urine 3+ (Negative); Ketones,Urine Negative (Negative); Leukocyte Esterase,Urine Positive (Negative); Nitrite,Urine Negative (Negative); PH,Urine 6.5 (5.0-7.0); Protein,Urine 2+ (Neg - Trace); RBC,Urine 14 /hpf (0-3); Specific Gravity,Urine 1.009 (1.001-1.035); Urobilinogen,Urine Negative mg/dL (0.0-1.0); WBC,Urine 124 /hpf (0-5)
[2024-05-18 14:44] LABS: Culture Indicated,Urine Yes
== END | disposition home or self-care (01) ==
LOC: SLDO 13:47
PROVIDERS: PCP Family Medicine; Referring Provider Family Medicine; Visit Provider Family Medicine
DX: N39.0 Urinary tract infection, site not specified (principal)
CPT/HCPCS: 81001; 87086; 87106

== ENCOUNTER → 2024-07-13 | Outpatient (CLI) | payer MEDICARE, BC, SELFPAY ==
[2024-07-13 10:56] LABS: Collection Type, Urine Catheter; Squamous Epithelial Cell,Urine 0 /hpf (0-5)
[2024-07-13 11:41] LABS: Basophils % (Auto) 1 % (0-2.5); Eosinophils # (Auto) 0.4 Thou/mm3 (0.0-0.5); Eosinophils % (Auto) 6 % (0-10); Hematocrit 31.9 % (41.0-53.0); Hemoglobin 11.2 g/dL (13.5-16.0); Immature Granulocytes % (Auto) 1 % (0-0); Immature Granulocytes Auto 0.08 Thou/mm3 (0.00-0.00); Lymphocytes # (Auto) 1.5 Thou/mm3 (1.0-4.8); Lymphocytes % (Auto) 21 % (10-50); Mean Corpuscular HGB Conc 35.1 g/dl (31.0-37.0); Mean Corpuscular Hemoglobin 29.2 pg (25.0-35.0); Mean Corpuscular Volume 83 fL (80-100); Monocytes # (Auto) 0.7 Thou/mm3 (0.0-0.8); Monocytes % (Auto) 10 % (0-12); Neutrophils # (Auto) 4.6 Thou/mm3 (1.8-7.7); Neutrophils % (Auto) 62 % (37-80); Nucleated Red Blood Cell % 0 /100 WBC (0); Platelet Count 182 Thou/mm3 (140-440); RDW Standard Deviation 42.5 fL (35.1-43.9); Red Blood Count 3.83 Miln/mm3 (4.50-5.90); White Blood Count 7.4 Thou/mm3 (3.8-10.6)
[2024-07-13 11:50] LABS: Bacteria,Urine 1+; Bilirubin,Urine Negative (Negative); Blood,Urine 3+ (Negative); Glucose, Urine 4+ (Negative); Ketones,Urine Negative (Negative); Leukocyte Esterase,Urine Positive (Negative); Nitrite,Urine Negative (Negative); PH,Urine 6.5 (5.0-7.0); Protein,Urine 2+ (Neg - Trace); RBC,Urine 349 /hpf (0-3); Specific Gravity,Urine 1.016 (1.001-1.035); Urobilinogen,Urine Negative mg/dL (0.0-1.0); WBC,Urine 2261 /hpf (0-5)
[2024-07-13 11:52] LABS: Albumin, Serum 3.3 gm/dL (3.4-4.8); Anion Gap 8 (7-16); BUN/Creatinine Ratio 25 Ratio (12-20); Blood Urea Nitrogen 76 mg/dL (9-23); Calcium 8.3 mg/dL (8.3-10.6); Calcium (Corrected) 8.9 mg/dL (8.5-10.1); Carbon Dioxide 28.2 mMol/L (20.0-31.0); Chloride 98 mMol/L (98-107); Clarity,Urine Cloudy (Clear/Hazy); Color,Urine Amber (Lt Yel-Yel); Creatinine (Component) 3.1 mg/dL (0.6-1.3); Phosphorous 4.4 mg/dL (2.4-5.1); Potassium 4.7 mMol/L (3.4-5.1); Sodium 134 mMol/L (136-145); eGFR 21 See Note
[2024-07-13 11:58] LABS: Osmolality,Calculated 322 (275-295)
[2024-07-13 12:02] LABS: Glucose 672 mg/dL (74-106)
== END | disposition home or self-care (01) ==
LOC: SLDO 10:36
PROVIDERS: PCP Family Medicine; Referring Provider Family Medicine; Visit Provider Family Medicine
DX: E11.22 Type 2 diabetes mellitus with diabetic chronic kidney disease (principal); N18.2 Chronic kidney disease, stage 2 (mild); N39.0 Urinary tract infection, site not specified; E11.51 Type 2 diabetes mellitus with diabetic peripheral angiopathy without gangrene
CPT/HCPCS: 36415; 80069; 81001; 85025; 87086; 87106

== ENCOUNTER → 2024-07-16 | Outpatient (CLI) | payer MEDICARE, BC, SELFPAY ==
[2024-07-16 15:36] LABS: Glucose Estimated Average 283 mg/dL (80-131); Hemoglobin A1C 11.5 % Hgb (4.8-6.0)
== END | disposition home or self-care (01) ==
LOC: SLDO 14:20
PROVIDERS: Referring Provider Family Medicine; Visit Provider Family Medicine
DX: E11.22 Type 2 diabetes mellitus with diabetic chronic kidney disease (principal); N18.9 Chronic kidney disease, unspecified
CPT/HCPCS: 36415; 83036

== ENCOUNTER → 2024-07-30 | Outpatient (CLI) | payer MEDICARE, BC, SELFPAY ==
[2024-07-30 10:24] LABS: Collection Type, Urine Clean Catch; Squamous Epithelial Cell,Urine 0 /hpf (0-5)
[2024-07-30 12:17] LABS: Amorphous Crystals,Urine Present (Absent); Bacteria,Urine 4+; Bilirubin,Urine Negative (Negative); Blood,Urine 2+ (Negative); Glucose, Urine Negative (Negative); Ketones,Urine Negative (Negative); Leukocyte Esterase,Urine Positive (Negative); Nitrite,Urine Negative (Negative); Protein,Urine 2+ (Neg - Trace); RBC,Urine 122 /hpf (0-3); Urobilinogen,Urine Negative mg/dL (0.0-1.0); WBC,Urine 3330 /hpf (0-5)
[2024-07-30 12:24] LABS: Clarity,Urine Turbid (Clear/Hazy); Color,Urine Yellow (Lt Yel-Yel); Culture Indicated,Urine Yes
== END | disposition home or self-care (01) ==
PROVIDERS: Referring Provider Family Medicine; Visit Provider Family Medicine
DX: N39.0 Urinary tract infection, site not specified (principal)
CPT/HCPCS: 81001; 87086

== ENCOUNTER → 2024-08-13 | Outpatient (CLI) | payer MEDICARE, SELFPAY ==
[2024-08-13 13:22] LABS: Collection Type, Urine Clean Catch; Squamous Epithelial Cell,Urine 0 /hpf (0-5)
[2024-08-13 15:08] LABS: Bacteria,Urine 4+; Bilirubin,Urine Negative (Negative); Blood,Urine 2+ (Negative); Glucose, Urine 2+ (Negative); Ketones,Urine Negative (Negative); Leukocyte Esterase,Urine Positive (Negative); Nitrite,Urine Negative (Negative); Protein,Urine 2+ (Neg - Trace); RBC,Urine 22 /hpf (0-3); Specific Gravity,Urine 1.012 (1.001-1.035); Urobilinogen,Urine Negative mg/dL (0.0-1.0); WBC,Urine 3514 /hpf (0-5)
[2024-08-13 15:09] LABS: Clarity,Urine Turbid (Clear/Hazy); Color,Urine Yellow (Lt Yel-Yel); Culture Indicated,Urine Yes
== END | disposition home or self-care (01) ==
LOC: COPL 13:16 → SLDO 13:17
PROVIDERS: PCP Family Medicine; Referring Provider Family Medicine; Visit Provider Family Medicine
DX: N39.0 Urinary tract infection, site not specified (principal)
CPT/HCPCS: 81001; 87086; 87106

== ENCOUNTER → 2024-11-13 | Outpatient (CLI) | payer MEDICARE, SELFPAY ==
[2024-11-13 17:26] LABS: Collection Type, Urine Clean Catch; Squamous Epithelial Cell,Urine 0 /hpf (0-5)
[2024-11-13 18:07] LABS: Bilirubin,Urine Negative (Negative); Blood,Urine 3+ (Negative); Color,Urine Dark-Brown (Lt Yel-Yel); Glucose, Urine 3+ (Negative); Ketones,Urine Negative (Negative); Leukocyte Esterase,Urine Positive (Negative); Nitrite,Urine Negative (Negative); PH,Urine 6.5 (5.0-7.0); Protein,Urine 2+ (Neg - Trace); RBC,Urine 2012 /hpf (0-3); Specific Gravity,Urine 1.013 (1.001-1.035); Urobilinogen,Urine Negative mg/dL (0.0-1.0); WBC,Urine 1614 /hpf (0-5)
[2024-11-13 18:19] LABS: Clarity,Urine Turbid (Clear/Hazy); Culture Indicated,Urine Yes
== END | disposition home or self-care (01) ==
LOC: SLDO 17:18
PROVIDERS: PCP Family Medicine; Referring Provider Family Medicine; Visit Provider Family Medicine
DX: N39.0 Urinary tract infection, site not specified (principal)
CPT/HCPCS: 81001; 87086

== ENCOUNTER → 2024-12-26 | Outpatient (CLI) | payer MEDICARE, SELFPAY ==
[2024-12-26 14:25] LABS: Collection Type, Urine Clean Catch; Squamous Epithelial Cell,Urine 0 /hpf (0-5)
[2024-12-26 17:17] LABS: Bacteria,Urine 1+; Bilirubin,Urine Negative (Negative); Blood,Urine 3+ (Negative); Glucose, Urine 1+ (Negative); Ketones,Urine Negative (Negative); Leukocyte Esterase,Urine Positive (Negative); Nitrite,Urine Negative (Negative); PH,Urine 6.0 (5.0-7.0); Protein,Urine 2+ (Neg - Trace); RBC,Urine 1338 /hpf (0-3); Specific Gravity,Urine 1.012 (1.001-1.035); Urobilinogen,Urine Negative mg/dL (0.0-1.0); WBC,Urine 3956 /hpf (0-5)
[2024-12-26 17:21] LABS: Culture Indicated,Urine Yes
[2024-12-26 17:22] LABS: Clarity,Urine Bloody (Clear/Hazy); Color,Urine Red (Lt Yel-Yel)
== END | disposition home or self-care (01) ==
LOC: SLDO 14:18
PROVIDERS: PCP Hospitalist; Referring Provider Hospitalist; Visit Provider Hospitalist
DX: N39.0 Urinary tract infection, site not specified (principal)
CPT/HCPCS: 81001; 87086

== ENCOUNTER → 2025-02-27 | Outpatient (CLI) | payer MEDICARE, SELFPAY | END | disposition home or self-care (01) | LOC: SLDO 15:34 | PROVIDERS: PCP Hospitalist; Referring Provider Hospitalist; Visit Provider Hospitalist | DX: N39.0 Urinary tract infection, site not specified (principal) | CPT/HCPCS: 87077; 87086; 87186 ==